=== PATIENT | male | born 1965 | race Caucasian/White ===

== ENCOUNTER 2018-07-07 22:44 | Emergency (ER) | payer MEDICAID, OTHER ==
[~2018-07-07] VITALS: Wt 74.3 kg
[2018-07-07 23:04] VITALS: BP 117/61; PULSE 79; RESP 18
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
[2018-07-08] MEDS ORDERED: ACET325T33 PO (03:21)
[2018-07-08] MEDS ORDERED: IBUP-1561 PO (03:21)
[2018-07-08] MEDS ORDERED: IBUPROFEN 200 MG TAB PO ONE (03:30)
[2018-07-08] MEDS ORDERED: ACETAMINOPHEN 325 MG TAB PO ONE (03:30)
== END 2018-07-08 03:42 | disposition home or self-care (01) ==
LOC: FTE 22:44
DX: M54.5 Low back pain (principal)
CPT/HCPCS: Z7502; Z7610; 99282